=== PATIENT | female | born 1970 | race American Indian/Alaskan Native ===

== ENCOUNTER → 2018-02-24 | Outpatient (CLI) | payer OTHER ==
[~2018-02-24] VITALS: Ht 160 cm; Wt 66.7 kg
[~2018-02-24] MED LIST: HYDROCHLOROTHIA25 M2 PO; IMDUR 30 MG TAB30 M1 PO; LISINOPRIL20 MG PO; LOPRESSOR25 PO; NITROGLYCERIN0.4 MG SUBLING; OMEPRAZOLE40 MG PO; PAXIL10 MG PO; PRAVACHOL20 MG PO
--- NOTE | ~2018-02-24 | CATHLAB ---
[facility] [address] [place] [address] INVASIVE PROCEDURE REPORT Name: BLANCA SHAHDEON CHRISTINE Room #: REG [facility]#: [id number] Admission: 02/24/18 Attend Phys: Vic Martinez Discharge: Date of : 70 Date of Service: 03/01/18 0931 Report #: [id number] THIS REPORT FOR: //name// APPROVED REPORT Study performed: 02/24/2018 11:52:46 Patient Details Patient Status: Out-Patient Room #: The patient is a 48 year-old female Event Personnel Vic Guy Parts Washer, Kate ZhengR, Radha Wagner Amber Monitor, Abdelrahman Ndiaye RN Procedures Performed Art Access - R femoral artery* 35864 Initial Mod Sed Same Phys/QHP Gr5y 377285 Left Heart Cath w/or w/o Coronaries [id number] [facility] Hemostasis with Manual pressure supervision of conscious sedation Indication Chest pain Procedure Narrative The Right Groin^ was infiltrated with 1% Lidocaine subcutaneous anesthesia. A PINNACLE 4FR Sheath #[id number] sheath was inserted into the RFA^. Coronary angiography was performed using coronary diagnostic catheters. The right coronary system was accessed and visualized with a JR 4 catheter. The left coronary system was accessed and visualized with a JL 4 catheter. The left ventricle was accessed and visualized with a JR 4 catheter. Left ventricular/Aortic Valve gradient assessed via catheter pullback. Hemostasis was obtained with manual pressure following sheath removal without any complications. The patient tolerated the procedure well and there were no complications associated with the procedure. There was no hematoma. Intraoperative Conscious Sedation Sedation start time: 12:13 Case end Time: 12:28 Versed 2 mg Fluoro Time: 1.40 minutes Dose: DAP 1516.00 cGycm2 219 mGy [facility] [place] [address] INVASIVE PROCEDURE REPORT Name: DEON ORTIZ Room #: REG NAE [facility]#: [id number] Admission: 02/24/18 Attend Phys: Vic Martinez Discharge: Date of : 70 Date of Service: 03/01/18 0931 Report #: [id number] Contrast Type and Amount: Omnipaque 40 ml Coronary Angiography The patient's coronary anatomy is right dominant. Diagnostic Cath Left Main Left main is normal origin and caliber bifurcates that anterior descending left circumflex free of high-grade disease LAD Small caliber vessel which rapidly tapers in its mid course towards the apex terminating as a small bifurcating string. No high-grade lesions were focal isolated lesions are noted Diagonal 1 Diminutive caliber vessel free of high-grade disease Diagonal 2 Moderate caliber vessel similar in size to the LAD courses in the anterolateral wall towards the apex free of high-grade stenosis Circumflex Monitor large-caliber vessel which courses in the AV groove uterus was tiny first OM and a diminutive second OM and terminates as a loop small posterior wall vessel after giving rise to a large lateral posterior wall marginal branch which is free of high-grade disease OM1 Small diminutive OM2 Small-caliber free of high-grade disease OM3 Moderate to large caliber coursing on the lateral posterior wall without significant stenotic lesions Right Coronary Moderate caliber vessel of normal origin but she's an AV groove giving rise to several string-like RV marginal branches. It continues posteriorly to the Christopher Geha gives rise to a small posterior descending artery and terminating as a small posterior wall branches and oriented to the AV node noted R PDA Last year small-caliber vessel without significant stenotic lesions Left Ventriculography Left Ventriculography was not performed. Hemodynamics The aortic pressure is 172/80 mmHg with a mean of 97 mmHg. The left ventricular pressure is 175/14 mmHg with a mean of mmHg. The left ventricular end diastolic pressure is 32 mmHg. Conclusion 1. Essentially normal coronary arteries with the exception of a rapidly tapering that into descending vessel. No focal lesions are noted [facility] [address] [place] [address] INVASIVE PROCEDURE REPORT Name: DEON ORTIZ [facility]: [id number] Admission: 02/24/18 Attend Phys: Vic Martinez Discharge: Date of : 70 Date of Service: 03/01/18 0931 Report #: [id number] 2. Normal hemodynamics Recommendations Cardiac Risk Reduction Program Aggressive Medical Therapy <ELECTRONICALLY SIGNED> By: Vic Guy MD 03/01/18930 0 0 Vic Guy MD /INF
[2018-02-24 10:25] VITALS: BP 148/77
[2018-02-24 10:33] LABS: HEMATOCRIT 41.2 % (37.0-47.0); HEMOGLOBIN 14.1 gm/dL (12.0-15.0); MCH 29.9 pg (26.0-34.0); MCHC 34.3 g/dL (28.0-37.0); MCV 87.4 fL (80.0-100.0); RBC 4.72 mil/uL (4.20-5.00); RDW 13.1 % (10.5-14.5); WBC 6.4 thou/uL (4.0-11.0)
[2018-02-24 10:42] LABS: CALCIUM 10.2 mg/dL (8.5-10.1); CREATININE 0.6 mg/dL (0.6-1.0); POTASSIUM 4.1 mmol/L (3.5-5.1)
== END | disposition home or self-care (01) ==
LOC: CATH 09:33
PROVIDERS: Internal Medicine
DX: R07.9 Chest pain, unspecified (principal); I10 Essential (primary) hypertension; E78.5 Hyperlipidemia, unspecified; E11.9 Type 2 diabetes mellitus without complications; Z98.890 Other specified postprocedural states; Z79.899 Other long term (current) drug therapy